=== PATIENT | female | born 1985 | race Caucasian/White ===

== ENCOUNTER 2018-05-31 10:02 | Emergency (ER) | payer BC, MEDICAID ==
--- NOTE | 2018-05-31 10:18 | EDM.PDOC ---
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 Patient states she took a test last week which was positive. Patient states she thinks her lmp was approximately the 3rd week in March. Patient states this was unplanned, her second , no prior miscarriages or abortions. Patient states she and her had intercourse this morning and she began to have significant vaginal bleeding passing clots. She states she has changed a pad about 2-3 times this morning. Patient denies any cramping, fever, chills, N/V/D, SOB, CP. Onset: Today, Sudden - Related Data Allergies Allergy/AdvReac Type Severity Reaction Status Date / Time No Known Allergies Allergy Verified 05/31/18 10:09 Home Meds: Home Meds . [No Known Home Meds] 09/07/14 [History] Past Medical History - Past Health History Medical/Surgical History: Denies Medical/Surgical History HEENT History: Reports: Impaired Vision Social & Family History - Family History Family Medical History: Noncontributory - Tobacco Use Smoking Status *Q: Never Smoker Second Hand Smoke Exposure: No - Recreational Drug Use Recreational Drug Use: No - Living Situation & Occupation Living situation: Reports: Occupation: Employed ED ROS GENERAL - Review of Systems Review Of Systems: ROS reveals no pertinent complaints other than HPI. ED EXAM - Physical Exam Exam: See Below Exam Limited By: No Limitations General Appearance: Alert, WD/WN, No Apparent Distress Eye Exam: Bilateral Eye: EOMI, Normal Inspection Ears: Normal External Exam, Hearing Grossly Normal Nose: Normal Inspection Throat/Mouth: Normal Inspection, Normal Voice, No Airway Compromise Head: Atraumatic, Normocephalic Neck: Normal Inspection, Full Range of Motion Respiratory/Chest: No Respiratory Distress, Lungs Clear, Normal Breath Sounds Cardiovascular: Normal Peripheral Pulses, Regular Rate, Rhythm, No Edema, No Gallop, No JVD, No Murmur, No Rub GI/Abdominal Exam: Normal Bowel Sounds, Soft, Non-Tender Rectal Exam: Deferred Back Exam: Normal Inspection, Full Range of Motion Extremities: Normal Inspection, Normal Range of Motion, Non-Tender, No Pedal Edema, Normal Capillary Refill Neurological: Alert, Oriented, CN II-XII Intact, Normal Cognition, Normal Gait, Normal Reflexes, No Motor/Sensory Deficits Psychiatric: Anxious, Tearful Skin Exam: Warm, Dry, Intact, Normal Color, No Rash Lymphatic: No Adenopathy Course - Vital Signs Last Recorded V/S: Last Vital Signs Temp 97.2 F 05/31/18 10:09 Pulse 90 05/31/18 10:09 Resp 16 05/31/18 10:09 BP 137/90 05/31/18 10:09 Pulse Ox 100 05/31/18 10:09 - Orders/Labs/Meds Orders: Active Orders 24 hr Category Date Time Status DRUG SCREEN URINE BIORAD [URCHEM] Stat Lab 05/31/18 11:30 Ordered HCG QUALITATIVE,URINE [URCHEM] Stat Lab 05/31/18 11:30 Ordered HCG QUANTITATIVE,SERUM [CHEM] Stat Lab 05/31/18 10:35 Received UA W/MICROSCOPIC [URIN] Stat Lab 05/31/18 11:30 Ordered Labs: Laboratory Tests 05/31/18 05/31/18 05/31/18 Range/Units 10:35 10:35 10:35 WBC 11.7 H (5.0-10.0) 10^3/uL RBC 4.59 (4.2-5.4) 10^6/uL Hgb 15.0 (12.0-16.0) g/dL Hct 44.9 (37.0-47.0) % MCV 97.8 (80-100) fL MCH 32.7 (27.0-34.0) pg MCHC 33.4 (33.0-35.0) g/dL Plt Count 225 (150-450) 10^3/uL Neut % (Auto) 74.8 (42.2-75.2) % Lymph % (Auto) 17.2 L (20.5-50.1) % [place] % (Auto) 6.7 (2-8) % Eos % (Auto) 1.0 (1.0-3.0) % Baso % (Auto) 0.3 (0.0-1.0) % Sodium 136 (135-145) mmol/L Potassium 4.2 (3.6-5.0) mmol/L Chloride 101 (101-111) mmol/L Carbon Dioxide 25.0 (21.0-31.0) mmol/L Anion Gap 14.2 BUN 13 (7-18) mg/dL Creatinine 0.6 (0.6-1.3) mg/dL Est Cr Clr Drug Dosing 121.13 mL/min Estimated GFR (MDRD) > 60 BUN/Creatinine Ratio 21.66 Glucose 98 (74-105) mg/dL Calcium 9.5 (8.4-10.2) mg/dl Total Bilirubin 0.6 (0.2-1.0) mg/dL AST 19 (10-42) IU/L ALT 19 (10-60) IU/L Alkaline Phosphatase 45 (42-121) IU/L Total Protein 8.3 H (6.7-8.2) g/dl Albumin 4.3 (3.2-5.5) g/dl Globulin 4.0 Albumin/Globulin Ratio 1.08 Urine Color (YELLOW) Urine Appearance (CLEAR) Urine pH (5.0-9.0) Ur Specific [place] (1.005-1.030) Urine Protein (NEGATIVE) Urine Glucose (UA) (NEGATIVE) Urine Ketones (NEGATIVE) Urine Occult Blood (NEGATIVE) Urine Nitrite (NEGATIVE) Urine Bilirubin (NEGATIVE) Urine Urobilinogen (0.2-1.0) mg/dL Ur Leukocyte Esterase (NEGATIVE) Urine RBC /HPF Urine WBC (0-5/HPF) /HPF Ur Epithelial Cells /HPF Amorphous Sediment (0/HPF) /HPF Urine Bacteria (0-FEW/HPF) /HPF Urine Mucus /LPF Urinalysis Comment Urine HCG, Qual Urine Opiates Screen (NEGATIVE) Ur Oxycodone Screen (NEGATIVE) Urine Methadone Screen (NEGATIVE) Ur Barbiturates Screen (NEGATIVE) U Tricyclic Antidepress (NEGATIVE) Ur Phencyclidine Scrn (NEGATIVE) Ur Amphetamine Screen (NEGATIVE) U Methamphetamines Scrn (NEGATIVE) Urine MDMA Screen (NEGATIVE) U Benzodiazepines Scrn (NEGATIVE) Urine Cocaine Screen (NEGATIVE) U Marijuana (THC) Screen (NEGATIVE) Ethyl Alcohol < 5 mg/dL Blood Type A POSITIVE Gel Antibody Screen Negative 05/31/18 05/31/18 05/31/18 Range/Units 11:30 11:30 11:30 WBC (5.0-10.0) 10^3/uL RBC (4.2-5.4) 10^6/uL Hgb (12.0-16.0) g/dL Hct (37.0-47.0) % MCV (80-100) fL MCH (27.0-34.0) pg MCHC (33.0-35.0) g/dL Plt Count (150-450) 10^3/uL Neut % (Auto) (42.2-75.2) % Lymph % (Auto) (20.5-50.1) % [place] % (Auto) (2-8) % Eos % (Auto) (1.0-3.0) % Baso % (Auto) (0.0-1.0) % Sodium (135-145) mmol/L Potassium (3.6-5.0) mmol/L Chloride (101-111) mmol/L Carbon Dioxide (21.0-31.0) mmol/L Anion Gap BUN (7-18) mg/dL Creatinine (0.6-1.3) mg/dL Est Cr Clr Drug Dosing mL/min Estimated GFR (MDRD) BUN/Creatinine Ratio Glucose (74-105) mg/dL Calcium (8.4-10.2) mg/dl Total Bilirubin (0.2-1.0) mg/dL AST (10-42) IU/L ALT (10-60) IU/L Alkaline Phosphatase (42-121) IU/L Total Protein (6.7-8.2) g/dl Albumin (3.2-5.5) g/dl Globulin Albumin/Globulin Ratio Urine Color Red (YELLOW) Urine Appearance Cloudy (CLEAR) Urine pH 5.5 (5.0-9.0) Ur Specific [place] 1.025 (1.005-1.030) Urine Protein 100 H (NEGATIVE) Urine Glucose (UA) Negative (NEGATIVE) Urine Ketones Negative (NEGATIVE) Urine Occult Blood Moderate H (NEGATIVE) Urine Nitrite Negative (NEGATIVE) Urine Bilirubin Negative (NEGATIVE) Urine Urobilinogen 0.2 (0.2-1.0) mg/dL Ur Leukocyte Esterase Negative (NEGATIVE) Urine RBC Packed H /HPF Urine WBC 5-10 H (0-5/HPF) /HPF Ur Epithelial Cells Few /HPF Amorphous Sediment Moderate H (0/HPF) /HPF Urine Bacteria Few (0-FEW/HPF) /HPF Urine Mucus Few H /LPF Urinalysis Comment See note Urine HCG, Qual Positive Urine Opiates Screen Negative (NEGATIVE) Ur Oxycodone Screen Negative (NEGATIVE) Urine Methadone Screen Negative (NEGATIVE) Ur Barbiturates Screen Negative (NEGATIVE) U Tricyclic Antidepress Negative (NEGATIVE) Ur Phencyclidine Scrn Negative (NEGATIVE) Ur Amphetamine Screen Negative (NEGATIVE) U Methamphetamines Scrn Negative (NEGATIVE) Urine MDMA Screen Negative (NEGATIVE) U Benzodiazepines Scrn Negative (NEGATIVE) Urine Cocaine Screen Negative (NEGATIVE) U Marijuana (THC) Screen Positive H (NEGATIVE) Ethyl Alcohol mg/dL Blood Type Gel Antibody Screen - Radiology Interpretation Free Text/Narrative:: OB ultrasound: 6 + 1 weeks, no heart tones. No yolk sac visualized. See rad report Departure - Departure Time of Disposition: 11:54 Disposition: Home, Self-Care 01 Condition: Fair Clinical Impression: Incomplete - Discharge Information *PRESCRIPTION DRUG MONITORING PROGRAM REVIEWED*: No *COPY OF PRESCRIPTION DRUG MONITORING REPORT IN PATIENT AISHWARYA: No Instructions: Miscarriage, [id number], Incomplete Miscarriage Forms: ED Department Discharge Additional Instructions: Rest Return to the ER if bleeding becomes heavier, changing pad every hour, if you develop fever or chills Follow up with your primary care facility this week. - My Orders Last 24 Hours: My Active Orders 05/31/18 10:35 HCG QUANTITATIVE,SERUM [CHEM] Stat 05/31/18 11:30 DRUG SCREEN URINE BIORAD [URCHEM] Stat HCG QUALITATIVE,URINE [URCHEM] Stat UA W/MICROSCOPIC [URIN] Stat - Assessment/Plan Last 24 Hours: My Active Orders 05/31/18 10:35 HCG QUANTITATIVE,SERUM [CHEM] Stat 05/31/18 11:30 DRUG SCREEN URINE BIORAD [URCHEM] Stat HCG QUALITATIVE,URINE [URCHEM] Stat UA W/MICROSCOPIC [URIN] Stat
[2018-05-31 11:00] LABS: ANION GAP 14.2; CHLORIDE,CL 101 mmol/L (101-111); SODIUM,NA 136 mmol/L (135-145)
== END 2018-05-31 11:59 | disposition home or self-care (01) ==
LOC: DL.ED 10:02
DX: O03.4 Incomplete spontaneous abortion without complication (principal)
CPT/HCPCS: 36415; 80053; 80305; 81001; 81025; 84702; 85025; 86850; 86900; 86901; 99284; G0480

== ENCOUNTER 2019-03-27 22:53 | Emergency (ER) | payer BC ==
[2019-03-27] MEDS ORDERED: HYDROmorphone 1 MG/ML Syringe IVPUSH ONE (22:56)
--- NOTE | 2019-03-27 22:59 | EDM.PDOC ---
ED HPI GENERAL MEDICAL PROBLEM - General Chief Complaint: Lower Extremity Injury/Pain Stated Complaint: AMBULANCE Time Seen by Provider: 03/27/19 22:55 Source of Information: Reports: Patient History Limitations: Reports: No Limitations - History of Present Illness INITIAL COMMENTS - FREE TEXT/NARRATIVE: tripped over flip flop and injured right ankle tonight. denies head/neck injury Right Ankle Pain Score (Numeric/FACES): 7 - Related Data Allergies Allergy/AdvReac Type Severity Reaction Status Date / Time No Known Allergies Allergy Verified 03/27/19 23:00 Home Meds: Home Meds . [No Known Home Meds] 09/07/14 [History] Past Medical History - Past Health History Medical/Surgical History: Denies Medical/Surgical History HEENT History: Reports: Impaired Vision Social & Family History - Family History Family Medical History: Noncontributory - Living Situation & Occupation Living situation: Reports: Occupation: Employed Review of Systems - Review of Systems Review Of Systems: ROS reveals no pertinent complaints other than HPI. ED EXAM, GENERAL - Physical Exam Exam: See Below Exam Limited By: No Limitations General Appearance: Alert, WD/WN, Moderate Distress, Other (crying) Ears: Hearing Grossly Normal Throat/Mouth: Normal Voice, No Airway Compromise Head: Atraumatic Neck: Non-Tender, Full Range of Motion Respiratory/Chest: No Respiratory Distress Cardiovascular: Regular Rate, Rhythm GI/Abdominal: Soft, Non-Tender Extremities: Other (grossly deformed, NV wnl.) Neurological: Alert, Oriented, Normal Cognition, No Motor/Sensory Deficits Psychiatric: Tearful Skin Exam: Warm, Dry, Normal Color Lymphatic: No Adenopathy Course - Vital Signs Last Recorded V/S: Last Vital Signs Temp 37.1 C 03/27/19 22:55 Pulse 147 H 03/27/19 22:55 Resp 19 03/27/19 22:55 BP 163/98 H 03/27/19 22:55 Pulse Ox - Orders/Labs/Meds Meds: Medications Discontinued Medications Generic Name Dose Route Start Last Admin Trade Name Freq PRN Reason Stop Dose Admin Hydromorphone HCl 1 mg 03/27/19 22:56 03/27/19 23:01 Dilaudid IVPUSH 03/27/19 22:57 1 mg ONETIME ONE Administration - Re-Assessments/Exams Free Text/Narrative Re-Assessment/Exam: 03/27/19 23:29 results discussed with pt & spouse. case discussed with Dr Cici garcia @ who rec' pt to go to ER for reduction. Departure - Departure Time of Disposition: 23:30 Disposition: DC/Tfer to Acute Hospital 02 Condition: Good Clinical Impression: Ankle fracture, right Qualifiers: Encounter type: initial encounter Fracture type: closed Qualified Code(s): S82.891A - Other fracture of right lower leg, initial encounter for closed fracture - Discharge Information Forms: Interfacility Transfer EMTALA
[2019-03-27] MEDS ORDERED: LORazepam 2 MG/ML Syringe IVPUSH ONE (23:31)
== END 2019-03-28 00:08 ==
LOC: DL.ED 22:53
DX: S82.891A Other fracture of right lower leg, initial encounter for closed fracture (principal); W19.XXXA Unspecified fall, initial encounter
CPT/HCPCS: 73600; 96374; 96375; 99285; J1170; J2060

== ENCOUNTER 2022-01-08 14:26 | Inpatient (IN) | payer SELFPAY ==
[2022-01-08] MEDS ORDERED: Sodium Chloride 0.9% 10 ML Syringe FLUSH PRN (14:43)
[2022-01-08] MEDS ORDERED: Iopamidol 755 Mg/ML 100 ML Bottle IVPUSH ONE (14:52)
[2022-01-08 15:29] LABS: ANION GAP 38.1 mEq/L (7-13)
[2022-01-08] MEDS ORDERED: Sodium Chloride 0.9% 1,000 ML IV ONE ×3 (15:29→17:10)
[2022-01-08] MEDS ORDERED: 50% Dextrose in Water 50 ML Syringe IVPUSH PRN (15:41)
[2022-01-08] MEDS ORDERED: Glucagon,Human Recombinant 1 MG Vial IM PRN (15:41)
[2022-01-08 16:07] LABS: O2 DELIVERY DEVICE ROOM AIR
[2022-01-08 16:10] LABS: BICARBONATE,ARTERIAL 2.5 mmol/L (22-26); O2 SATURATION ARTERIAL 96 % (95-100); PCO2 ARTERIAL 9 mmHg (35-45); PO2 ARTERIAL 109 mmHg (70-100)
[2022-01-08 16:11] LABS: BASE EXCESS ARTERIAL -28 mmol/L ((-2)-(+3))
[2022-01-08 16:23] LABS: HEMOGLOBIN A1C 10.7 % (<5.7)
[2022-01-08] MEDS ORDERED: Famotidine 20 MG/2 ML SDV IVPUSH ONE (17:10)
[2022-01-08] MEDS ORDERED: oxyCODONE 5 MG Tab PO PRN (19:14)
[2022-01-08] MEDS ORDERED: fentaNYL 100 MCG/2 ML SDV IVPUSH PRN ×2 (19:14→19:29)
[2022-01-08] MEDS ORDERED: Ondansetron 4 MG/2 ML SDV IVPUSH PRN (19:18)
[2022-01-08] MEDS ORDERED: Acetaminophen 325 MG Tab PO PRN (19:18)
[2022-01-08] MEDS ORDERED: Temazepam 15 MG Cap PO PRN (19:18)
[2022-01-08] MEDS ORDERED: Sodium Chloride 0.9% 1,000 ML IV SCH (19:30)
[2022-01-08] MEDS ORDERED: LORazepam 0.5 MG Tab PO PRN (19:52)
[2022-01-08] MEDS ORDERED: LORazepam 2 MG/ML SDV IVPUSH PRN (19:52)
[2022-01-08] MEDS ORDERED: Dextrose 5%-0.9% NaCl 1,000 ML IV SCH (22:00)
[2022-01-08 22:03] LABS: ANION GAP 32.1 mEq/L (7-13); CHLORIDE,CL 92 mmol/L (98-107); SODIUM,NA 124 mmol/L (136-145)
[2022-01-08] MEDS ORDERED: Sodium Bicarbonate 100 MEQ in Dextrose 5% in Water 1,000 ML IV ONE ×2 (22:10)
[2022-01-08] MEDS ORDERED: 50% Dextrose in Water 50 ML Syringe IVPUSH ONE (22:12)
[2022-01-08] MEDS: Heparin Sodium 5,000 Units/ML Vial SUBCUT SCH (23:42)
[2022-01-08] MEDS ORDERED: Sodium Bicarbonate 8.4% 50 MEQ/50 ML SDV ONE (23:51)
[2022-01-09 00:23] LABS: ANION GAP 30.4 mEq/L (7-13); CHLORIDE,CL 95 mmol/L (98-107); SODIUM,NA 129 mmol/L (136-145)
[2022-01-09] MEDS ORDERED: Potassium Chloride 10 MEQ Tab.ER PO ONE ×2 (00:33→22:00)
[2022-01-09] MEDS: Dextrose 5%-0.9% NaCl with KCl 1,000 ML IV SCH ×4 (01:12→17:24)
[2022-01-09] MEDS: Heparin Sodium 5,000 Units/ML Vial SUBCUT SCH ×2 (05:29→15:58)
[2022-01-09 07:27] LABS: ANION GAP 21.3 mEq/L (7-13); CHLORIDE,CL 100 mmol/L (98-107); SODIUM,NA 131 mmol/L (136-145)
[2022-01-09] MEDS ORDERED: cefTRIAXone 1 GM in Sodium Chloride 0.9% 50 ML IV SCH (08:45)
[2022-01-09] MEDS ORDERED: Famotidine 20 MG Tab PO SCH (09:00)
[2022-01-09] MEDS: Piperacillin/Tazobactam 3.375 GM in Sodium Chloride 0.9% 100 ML IV SCH ×3 (10:10→17:25)
[2022-01-09] MEDS: Potassium Phosphates 20 MMOLE in Sodium Chloride 0.9% 100 ML IV SCH ×3 (10:26→18:43)
[2022-01-09] MEDS ORDERED: 50% Dextrose in Water 50 ML Syringe IVPUSH ONE ×2 (14:23→16:34)
[2022-01-09 14:34] LABS: ANION GAP 21.2 mEq/L (7-13); CHLORIDE,CL 102 mmol/L (98-107); SODIUM,NA 133 mmol/L (136-145)
[2022-01-09 14:50] LABS: ALLEN TEST PERFORMED
[2022-01-09 19:02] LABS: ANION GAP 21.9 mEq/L (7-13); CHLORIDE,CL 102 mmol/L (98-107); SODIUM,NA 135 mmol/L (136-145)
[2022-01-09] MEDS ORDERED: Furosemide 20 MG/2 ML VIAL IVPUSH ONE (19:32)
[2022-01-09] MEDS ORDERED: MVI, Adult with Vitamin K 10 ML SDV IV SCH (19:45)
[2022-01-09] MEDS ORDERED: Dextrose 5%-Lactated Ringers 1,000 ML IV SCH (19:45)
[2022-01-09] MEDS ORDERED: Thiamine 200 MG/2 ML MDV IV SCH (19:45)
[2022-01-09] MEDS ORDERED: Lactated Ringers 1,000 ML IV SCH (19:45)
[2022-01-09] MEDS ORDERED: Folic Acid 1 MG in Sodium Chloride 0.9% 50 ML IV SCH (19:45)
[2022-01-09] MEDS ORDERED: Albuterol/Ipratropium 3.0-0.5 MG/3 ML Neb Soln NEB PRN (20:51)
[2022-01-09] MEDS ORDERED: guaiFENesin/Dextromethorphan 100-10 MG/5 ML Soln 5 ML Cup PO PRN (20:51)
[2022-01-09] MEDS ORDERED: Furosemide 20 MG Tab PO ONE (20:55)
[2022-01-09] MEDS ORDERED: LORazepam 2 MG/ML SDV IM ONE (21:07)
== END 2022-01-09 22:05 | DRG 438 ==
LOC: DL.ED 14:26 → DL.MS 18:01
PROVIDERS: ADMIT Internal Medicine; ATTEND Internal Medicine
DX: K85.20 Alcohol induced acute pancreatitis without necrosis or infection (principal); E10.10 Type 1 diabetes mellitus with ketoacidosis without coma; E87.1 Hypo-osmolality and hyponatremia; N17.9 Acute kidney failure, unspecified; N39.0 Urinary tract infection, site not specified; E87.5 Hyperkalemia; R16.0 Hepatomegaly, not elsewhere classified; Z20.822 Contact with and (suspected) exposure to COVID-19; K76.0 Fatty (change of) liver, not elsewhere classified; H54.7 Unspecified visual loss
CPT/HCPCS: 36415; 36600; 51701; 51702; 71260; 74176; 76705; 80048; 80053; 80061; 80076; 81001; 81025; 82009; 82150; 82803; 82947; 83036; 83605; 83690; 83735; 84100; 84443; 84484; 85025; 85379; 86140; 87086; 93005; 94640; 96374; 99285-25; A9270-GY; J1644; J1815-GY; J2060; J2405; J2543; J3010; J3475; J3480; J3490; J7030; J7042; J7060; J7620-GY; Q9967; U0002

== ENCOUNTER 2022-01-18 07:52 | Inpatient (IN) | payer MEDICAID ==
[2022-01-18] MEDS ORDERED: Sodium Chloride 0.9% 1,000 ML IV ONE ×3 (08:04→09:02)
[2022-01-18] MEDS ORDERED: Ondansetron 4 MG/2 ML SDV IV ONE (08:04)
[2022-01-18] MEDS ORDERED: Insulin Regular, Human 100 Units/ML 3 ML Vial SUBCUT ONE (08:05)
[2022-01-18] MEDS: Sodium Chloride 0.9% 10 ML Syringe FLUSH PRN (08:21)
[2022-01-18 08:26] LABS: O2 DELIVERY DEVICE ROOM AIR
[2022-01-18] MEDS ORDERED: Sodium Chloride 0.9% 10 ML Syringe FLUSH PRN (08:28)
[2022-01-18 08:30] LABS: BASE EXCESS VENOUS -21.5 mmol/l ((-2)-(+3)); BICARBONATE,VENOUS 7 mmol/l (19-25); O2 SATURATION VENOUS 48 % (60-80); PCO2 VENOUS 22 mmHg (41-51); PH,VENOUS 7.12 (7.31-7.41); PO2 VENOUS 34 mmHg (35-42)
[2022-01-18 08:48] LABS: ANION GAP 34.4 mEq/L (7-13); CHLORIDE,CL 98 mmol/L (98-107); SODIUM,NA 136 mmol/L (136-145)
[2022-01-18] MEDS ORDERED: diphenhydrAMINE 50 MG/ML SDV IVPUSH ONE (09:02)
[2022-01-18 09:03] LABS: AMPHETAMINES,URINE NEGATIVE (NEGATIVE); BARBITURATES,URINE NEGATIVE (NEGATIVE); BENZODIAZEPINE,URINE NEGATIVE (NEGATIVE); MDMA (ECSTASY), URINE NEGATIVE (NEGATIVE); METHADONE,URINE NEGATIVE (NEGATIVE); METHAMPHETAMINES,URINE NEGATIVE (NEGATIVE); OPIATES,URINE NEGATIVE (NEGATIVE); OXYCODONE,URINE NEGATIVE (NEGATIVE); PHENCYCLIDINE,URINE NEGATIVE (NEGATIVE); TCA,URINE NEGATIVE (NEGATIVE)
[2022-01-18] MEDS ORDERED: Piperacillin/Tazobactam 3.375 GM in Sodium Chloride 0.9% 100 ML IV ONE (09:40)
[2022-01-18 10:00] LABS: CORONAVIRUS COVID-19 NAA NEGATIVE (NEGATIVE); RESPIRATORY SYNCYTIAL VIR NAA NEGATIVE (NEGATIVE)
[2022-01-18] MEDS ORDERED: oxyCODONE 5 MG Tab PO PRN (11:21)
[2022-01-18] MEDS ORDERED: Promethazine 25 MG/ML SDV IM PRN (11:21)
[2022-01-18] MEDS ORDERED: Acetaminophen 325 MG Tab PO PRN (11:21)
[2022-01-18] MEDS ORDERED: Glucagon,Human Recombinant 1 MG Vial IM PRN (11:35)
[2022-01-18] MEDS ORDERED: 50% Dextrose in Water 50 ML Syringe IVPUSH PRN (11:35)
[2022-01-18] MEDS: Dextrose 5%-0.9% NaCl 1,000 ML IV SCH ×3 (12:02→23:27)
[2022-01-18 12:43] LABS: ANION GAP 26.1 mEq/L (7-13); CHLORIDE,CL 106 mmol/L (98-107); SODIUM,NA 141 mmol/L (136-145)
[2022-01-18] MEDS ORDERED: Naltrexone 50 MG Tab PO SCH (14:30)
[2022-01-18] MEDS ORDERED: Albuterol/Ipratropium 3.0-0.5 MG/3 ML Neb Soln NEB PRN (15:02)
[2022-01-18] MEDS: Folic Acid 1 MG Tab PO SCH (15:44)
[2022-01-18] MEDS: Thiamine 100 MG Tab PO SCH (15:44)
[2022-01-18] MEDS: Apixaban 5 MG Tab PO SCH ×2 (15:44→21:14)
[2022-01-18] MEDS: Multivitamin, Childrens Tab.Chew PO SCH (15:44)
[2022-01-18] MEDS: FLUoxetine 10 MG Cap PO SCH (15:44)
[2022-01-18] MEDS: cefTRIAXone 2 GM in Sodium Chloride 0.9% 100 ML IV SCH (15:45)
[2022-01-18] MEDS: Azithromycin 500 MG in Sodium Chloride 0.9% 250 ML IV SCH (15:47)
[2022-01-18] MEDS: Ondansetron 4 MG/2 ML SDV IVPUSH PRN (16:11)
[2022-01-18 16:32] LABS: ANION GAP 22.1 mEq/L (7-13); CHLORIDE,CL 105 mmol/L (98-107); SODIUM,NA 137 mmol/L (136-145)
[2022-01-18 20:49] LABS: ANION GAP 19.8 mEq/L (7-13); CHLORIDE,CL 106 mmol/L (98-107); SODIUM,NA 136 mmol/L (136-145)
[2022-01-18] MEDS: Sodium Chloride 0.9% 1,000 ML IV SCH (21:16)
[2022-01-19 00:55] LABS: ANION GAP 20.3 mEq/L (7-13); CHLORIDE,CL 106 mmol/L (98-107); SODIUM,NA 137 mmol/L (136-145)
[2022-01-19] MEDS: Sodium Chloride 0.9% 10 ML Syringe FLUSH PRN (01:31)
[2022-01-19] MEDS: Potassium Chloride 20 MEQ in Premix Bag 1 BAG IV SCH ×4 (01:31→12:11)
[2022-01-19] MEDS: Dextrose 5%-0.9% NaCl 1,000 ML IV SCH ×4 (04:36→20:09)
[2022-01-19 04:49] LABS: ANION GAP 17.5 mEq/L (7-13); CHLORIDE,CL 108 mmol/L (98-107); SODIUM,NA 137 mmol/L (136-145)
[2022-01-19] MEDS: Multivitamin, Childrens Tab.Chew PO SCH (08:43)
[2022-01-19] MEDS: Thiamine 100 MG Tab PO SCH (08:43)
[2022-01-19] MEDS: Folic Acid 1 MG Tab PO SCH (08:43)
[2022-01-19] MEDS: Apixaban 5 MG Tab PO SCH ×2 (08:43→20:27)
[2022-01-19] MEDS: FLUoxetine 10 MG Cap PO SCH (08:44)
[2022-01-19 09:07] LABS: ANION GAP 17.4 mEq/L (7-13); CHLORIDE,CL 108 mmol/L (98-107); SODIUM,NA 139 mmol/L (136-145)
[2022-01-19] MEDS ORDERED: Potassium Chloride 10 MEQ Tab.ER PO ONE ×2 (09:25→21:45)
[2022-01-19] MEDS ORDERED: Potassium Chloride 20 MEQ in Premix Bag 2 BAG IV ONE (09:25)
[2022-01-19] MEDS ORDERED: Calcium Carbonate 500 MG Tab.Chew PO SCH (12:00)
[2022-01-19] MEDS: Calcium Carbonate 500 MG Tab.Chew PO SCH ×2 (12:10→20:26)
[2022-01-19 12:49] LABS: ANION GAP 18.9 mEq/L (7-13); CHLORIDE,CL 110 mmol/L (98-107); SODIUM,NA 140 mmol/L (136-145)
[2022-01-19] MEDS ORDERED: Magnesium Sulfate/Water 2 GM in Premix Bag 2 BAG IV ONE (13:20)
[2022-01-19] MEDS: Phosphorus #1 250 MG Tab PO SCH ×3 (13:33→20:27)
[2022-01-19] MEDS: cefTRIAXone 2 GM in Sodium Chloride 0.9% 100 ML IV SCH (13:36)
[2022-01-19] MEDS: Azithromycin 500 MG in Sodium Chloride 0.9% 250 ML IV SCH (14:00)
[2022-01-19] MEDS: Ondansetron 4 MG/2 ML SDV IVPUSH PRN (14:12)
[2022-01-19] MEDS: Magnesium Sulfate/Water 2 GM in Premix Bag 1 BAG IV SCH ×2 (15:08→16:48)
[2022-01-19] MEDS: Sodium Chloride 0.9% 1,000 ML IV SCH (16:52)
[2022-01-19 17:19] LABS: ANION GAP 17.8 mEq/L (7-13); CHLORIDE,CL 110 mmol/L (98-107); SODIUM,NA 140 mmol/L (136-145)
[2022-01-19 20:38] LABS: ANION GAP 17.4 mEq/L (7-13); CHLORIDE,CL 109 mmol/L (98-107); SODIUM,NA 140 mmol/L (136-145)
[2022-01-19] MEDS ORDERED: Potassium Chloride 20 MEQ in Premix Bag 1 BAG IV ONE (22:00)
[2022-01-19] MEDS ORDERED: Sodium Bicarbonate 100 MEQ in Dextrose 5% in Water 1,000 ML IV ONE ×2 (22:30)
[2022-01-19] MEDS ORDERED: Sodium Bicarbonate 8.4% 50 MEQ/50 ML SDV ONE (22:34)
[2022-01-20] MEDS ORDERED: Potassium Chloride 20 MEQ in Premix Bag 1 BAG IV ONE ×2
[2022-01-20 00:54] LABS: CHLORIDE,CL 106 mmol/L (98-107); SODIUM,NA 139 mmol/L (136-145)
[2022-01-20] MEDS: Dextrose 5%-0.9% NaCl 1,000 ML IV SCH ×3 (01:05→12:25)
[2022-01-20 04:57] LABS: ANION GAP 14.7 mEq/L (7-13); CHLORIDE,CL 111 mmol/L (98-107); SODIUM,NA 141 mmol/L (136-145)
[2022-01-20 08:24] LABS: ANION GAP 16.8 mEq/L (7-13); CHLORIDE,CL 109 mmol/L (98-107); SODIUM,NA 140 mmol/L (136-145)
[2022-01-20] MEDS ORDERED: Sodium Bicarbonate 50 MEQ in Dextrose 5% in Water 1,000 ML IV ONE ×2 (09:15)
[2022-01-20] MEDS: Multivitamin, Childrens Tab.Chew PO SCH (09:39)
[2022-01-20] MEDS: Calcium Carbonate 500 MG Tab.Chew PO SCH ×2 (09:40→20:30)
[2022-01-20] MEDS: Phosphorus #1 250 MG Tab PO SCH ×4 (09:40→20:30)
[2022-01-20] MEDS: Folic Acid 1 MG Tab PO SCH (09:41)
[2022-01-20] MEDS: FLUoxetine 10 MG Cap PO SCH (09:41)
[2022-01-20] MEDS: Apixaban 5 MG Tab PO SCH ×2 (09:41→20:30)
[2022-01-20] MEDS: Thiamine 100 MG Tab PO SCH (09:41)
[2022-01-20] MEDS ORDERED: Magnesium Sulfate/Water 2 GM in Premix Bag 1 BAG IV ONE (12:30)
[2022-01-20] MEDS: Sodium Chloride 0.9% 1,000 ML IV SCH (13:04)
[2022-01-20] MEDS: cefTRIAXone 2 GM in Sodium Chloride 0.9% 100 ML IV SCH (14:45)
[2022-01-20] MEDS: Sodium Chloride 0.9% 10 ML Syringe FLUSH PRN ×2 (14:46→15:32)
[2022-01-20 14:53] LABS: ANION GAP 16.6 mEq/L (7-13); CHLORIDE,CL 106 mmol/L (98-107); SODIUM,NA 140 mmol/L (136-145)
[2022-01-20] MEDS ORDERED: Potassium Chloride 10 MEQ in Premix Bag 1 BAG IV ONE (15:23)
[2022-01-20] MEDS: Azithromycin 500 MG in Sodium Chloride 0.9% 250 ML IV SCH (15:32)
[2022-01-20] MEDS ORDERED: Potassium Chloride 10 MEQ Tab.ER PO ONE (16:00)
[2022-01-20] MEDS: Potassium Chloride 20 MEQ in Premix Bag 1 BAG IV SCH ×2 (16:04→19:39)
[2022-01-20] MEDS: D5 1/2 NS w/ 20 mEq/L KCl 1,000 ML IV SCH ×2 (16:05→21:48)
[2022-01-20 18:10] LABS: ANION GAP 16.7 mEq/L (7-13); CHLORIDE,CL 107 mmol/L (98-107); SODIUM,NA 141 mmol/L (136-145)
[2022-01-20 22:18] LABS: CHLORIDE,CL 108 mmol/L (98-107); SODIUM,NA 141 mmol/L (136-145)
[2022-01-20] MEDS ORDERED: 50% Dextrose in Water 50 ML Syringe IVPUSH PRN ×2 (22:39→23:04)
[2022-01-20] MEDS ORDERED: Glucagon,Human Recombinant 1 MG Vial IM PRN ×2 (22:39→23:04)
[2022-01-20] MEDS: Insulin Glarg,Human.Rec.Analog 100 Unit/ML SUBCUT SCH (23:02)
[2022-01-20] MEDS: NS + KCl 20mEq/L 1,000 ML IV SCH (23:05)
[2022-01-20] MEDS: Insulin Lispro 100 Units/ML 3 ML Vial SUBCUT SCH (23:15)
[2022-01-21] MEDS: Phosphorus #1 250 MG Tab PO SCH ×5 (00:02→20:58)
[2022-01-21] MEDS: NS + KCl 20mEq/L 1,000 ML IV SCH ×3 (06:28→23:25)
[2022-01-21] MEDS: Insulin Lispro 100 Units/ML 3 ML Vial SUBCUT SCH ×3 (09:13→17:39)
[2022-01-21] MEDS: FLUoxetine 10 MG Cap PO SCH (09:16)
[2022-01-21] MEDS: Thiamine 100 MG Tab PO SCH (09:17)
[2022-01-21] MEDS: Folic Acid 1 MG Tab PO SCH (09:17)
[2022-01-21] MEDS: Multivitamin, Childrens Tab.Chew PO SCH (09:17)
[2022-01-21] MEDS: Apixaban 5 MG Tab PO SCH ×2 (09:17→20:59)
[2022-01-21] MEDS: Calcium Carbonate 500 MG Tab.Chew PO SCH ×2 (09:18→20:59)
[2022-01-21] MEDS: cefTRIAXone 2 GM in Sodium Chloride 0.9% 100 ML IV SCH (14:31)
[2022-01-21] MEDS: Azithromycin 500 MG in Sodium Chloride 0.9% 250 ML IV SCH (15:13)
[2022-01-21] MEDS: Insulin Glarg,Human.Rec.Analog 100 Unit/ML SUBCUT SCH (21:17)
[2022-01-21] MEDS ORDERED: Magnesium Sulfate/Water 2 GM in Premix Bag 1 BAG IV ONE (22:55)
[2022-01-21] MEDS: Melatonin 3 MG Tab PO PRN (23:29)
[2022-01-22 07:05] LABS: ANION GAP 13.3 mEq/L (7-13); CHLORIDE,CL 108 mmol/L (98-107); SODIUM,NA 141 mmol/L (136-145)
[2022-01-22] MEDS: Folic Acid 1 MG Tab PO SCH (08:27)
[2022-01-22] MEDS: Calcium Carbonate 500 MG Tab.Chew PO SCH ×2 (08:27→20:08)
[2022-01-22] MEDS: Apixaban 5 MG Tab PO SCH ×2 (08:27→20:08)
[2022-01-22] MEDS: Thiamine 100 MG Tab PO SCH (08:27)
[2022-01-22] MEDS: FLUoxetine 10 MG Cap PO SCH (08:28)
[2022-01-22] MEDS: Multivitamin, Childrens Tab.Chew PO SCH (08:28)
[2022-01-22] MEDS: Phosphorus #1 250 MG Tab PO SCH ×4 (08:28→20:07)
[2022-01-22] MEDS: Insulin Lispro 100 Units/ML 3 ML Vial SUBCUT SCH ×3 (08:29→17:23)
[2022-01-22] MEDS: NS + KCl 20mEq/L 1,000 ML IV SCH ×2 (09:57→20:06)
[2022-01-22] MEDS: Potassium Chloride 10 MEQ Tab.ER PO SCH (12:19)
[2022-01-22] MEDS: cefTRIAXone 2 GM in Sodium Chloride 0.9% 100 ML IV SCH (14:26)
[2022-01-22] MEDS: Sodium Chloride 0.9% 10 ML Syringe FLUSH PRN (15:17)
[2022-01-22] MEDS: Azithromycin 500 MG in Sodium Chloride 0.9% 250 ML IV SCH (15:17)
[2022-01-22] MEDS: Insulin Glarg,Human.Rec.Analog 100 Unit/ML SUBCUT SCH (20:50)
[2022-01-22] MEDS: Melatonin 3 MG Tab PO PRN (20:56)
[2022-01-23] MEDS: NS + KCl 20mEq/L 1,000 ML IV SCH (04:10)
[2022-01-23] MEDS: Insulin Lispro 100 Units/ML 3 ML Vial SUBCUT SCH ×2 (08:21→12:33)
[2022-01-23] MEDS: Multivitamin, Childrens Tab.Chew PO SCH (08:22)
[2022-01-23] MEDS: Potassium Chloride 10 MEQ Tab.ER PO SCH (08:23)
[2022-01-23] MEDS: Phosphorus #1 250 MG Tab PO SCH ×2 (08:23→13:14)
[2022-01-23] MEDS: Apixaban 5 MG Tab PO SCH (08:23)
[2022-01-23] MEDS: Folic Acid 1 MG Tab PO SCH (08:23)
[2022-01-23] MEDS: Thiamine 100 MG Tab PO SCH (08:23)
[2022-01-23] MEDS: FLUoxetine 10 MG Cap PO SCH (08:23)
[2022-01-23] MEDS: Calcium Carbonate 500 MG Tab.Chew PO SCH (08:24)
[2022-01-23 08:30] LABS: CHLORIDE,CL 105 mmol/L (98-107); SODIUM,NA 139 mmol/L (136-145)
[2022-01-23] MEDS ORDERED: cefTRIAXone 1 GM, Lidocaine 1% 2.1 ML IM ONE ×2 (12:49)
[2022-01-23] MEDS ORDERED: cefTRIAXone 2 GM, Lidocaine 1% 4.2 ML IM ONE ×2 (13:00)
[2022-01-23] MEDS ORDERED: Lidocaine 1% 30 ML SDV ONE (13:01)
== END 2022-01-23 13:45 | disposition home or self-care (01) | DRG 871 ==
LOC: DL.ED 07:52 → DL.MS 10:06
PROVIDERS: ADMIT Hospitalist; ATTEND Internal Medicine
DX: A41.9 Sepsis, unspecified organism (principal); E10.10 Type 1 diabetes mellitus with ketoacidosis without coma; J18.9 Pneumonia, unspecified organism; E83.51 Hypocalcemia; F17.210 Nicotine dependence, cigarettes, uncomplicated; F10.20 Alcohol dependence, uncomplicated; H54.7 Unspecified visual loss; G89.29 Other chronic pain; M54.9 Dorsalgia, unspecified; Z20.822 Contact with and (suspected) exposure to COVID-19; E83.42 Hypomagnesemia; E83.39 Other disorders of phosphorus metabolism; Z79.01 Long term (current) use of anticoagulants; Z79.4 Long term (current) use of insulin; Z79.899 Other long term (current) drug therapy
CPT/HCPCS: 0241U; 36415; 71045; 80048; 80053; 80076; 80305-QW; 80307; 81001; 81025; 82009; 82150; 82803; 82947; 83605; 83690; 83735; 84100; 84484; 85025; 85027; 87040; 93005; 93010; 96365; 96375; 99285; 99285-25; A9270-GY; J0456; J0696; J1200; J1815-GY; J2405; J2543; J2550; J3370; J3475; J3480; J3490; J7030; J7042; J7050; J7060

== ENCOUNTER 2022-06-05 19:06 | Emergency (ER) | payer MEDICAID ==
[2022-06-05] MEDS ORDERED: 50% Dextrose in Water 50 ML Syringe IVPUSH ONE ×2 (19:13→20:40)
[2022-06-05] MEDS ORDERED: 50% Dextrose in Water 50 ML Syringe ONE (19:14)
[2022-06-05] MEDS ORDERED: Potassium Chloride Riders 10 MEQ in Premix Bag 1 BAG IV ONE (20:18)
[2022-06-05] MEDS ORDERED: Sodium Chloride 0.9% 1,000 ML IV ONE (20:18)
[2022-06-05 20:19] LABS: ANION GAP 5.2 mEq/L (7-13)
[2022-06-05] MEDS ORDERED: Potassium Chloride 10 MEQ Tab.ER PO ONE (20:39)
== END 2022-06-05 23:56 | disposition home or self-care (01) ==
LOC: DL.ED 19:06
DX: E86.0 Dehydration (principal); E10.649 Type 1 diabetes mellitus with hypoglycemia without coma; E87.6 Hypokalemia; N17.9 Acute kidney failure, unspecified; F17.210 Nicotine dependence, cigarettes, uncomplicated; Z79.01 Long term (current) use of anticoagulants; Z79.899 Other long term (current) drug therapy; Z79.84 Long term (current) use of oral hypoglycemic drugs; Z79.4 Long term (current) use of insulin
CPT/HCPCS: 36415; 80053; 80307; 82947; 83605; 85025; 87040; 96365; 96366; 96375; 96376; 99284; A9270; J3480; J7030; 99283

== ENCOUNTER 2022-06-14 02:31 | Emergency (ER) | payer MEDICAID ==
[2022-06-14 03:37] LABS: ANION GAP 6.9 mEq/L (7-13); CHLORIDE,CL 82 mmol/L (98-107); SODIUM,NA 131 mmol/L (136-145)
[2022-06-14] MEDS ORDERED: Potassium Chloride 20 MEQ in Premix Bag 1 BAG IV ONE (03:42)
[2022-06-14 03:43] LABS: ACETAMINOPHEN 0 ug/mL (10-30 (Therapeutic)); ESTIMATED GFR 12 mL/min (>=60)
[2022-06-14] MEDS ORDERED: Potassium Chloride 10 MEQ Tab.ER PO ONE (04:00)
== END 2022-06-14 07:10 ==
LOC: DL.ED 02:31
DX: K70.31 Alcoholic cirrhosis of liver with ascites (principal); E87.6 Hypokalemia; E87.1 Hypo-osmolality and hyponatremia; E72.20 Disorder of urea cycle metabolism, unspecified; D72.829 Elevated white blood cell count, unspecified; E10.9 Type 1 diabetes mellitus without complications; Z79.01 Long term (current) use of anticoagulants; Z20.822 Contact with and (suspected) exposure to COVID-19
CPT/HCPCS: 36415; 80053; 80143; 80307; 82009; 82140; 82150; 82947; 83605; 83690; 83735; 85025; 87040; 87077; 87186; 87635; 96365; 96366; 99285; A9270; J3480; U0002

== ENCOUNTER 2022-09-02 15:34 | Emergency (ER) | payer MEDICAID ==
[2022-09-02 13:26] LABS: ANION GAP 11.8 mEq/L (7-13)
[~2022-09-02 15:34] MED LIST: HYDROmorphone 1 MG/ML Syringe IVPUSH ONE
== END 2022-09-02 16:18 | disposition home or self-care (01) ==
LOC: DL.ED 15:34
DX: K46.9 Unspecified abdominal hernia without obstruction or gangrene (principal); R18.8 Other ascites; K59.00 Constipation, unspecified; E10.9 Type 1 diabetes mellitus without complications; Z79.899 Other long term (current) drug therapy; Z79.01 Long term (current) use of anticoagulants; Z79.4 Long term (current) use of insulin
CPT/HCPCS: 36415; 72192; 74150; 80053; 83605; 85025; 87040; 87077; 87186; 96374; 99284; J1170